=== PATIENT | male | born 1985 | race American Indian/Alaskan Native ===

== ENCOUNTER 2018-08-11 20:27 | Emergency (ER) | payer OTHER ==
[2018-08-11 20:43] VITALS: BP 128/82
[2018-08-11] MEDS ORDERED: BENADRYL PO ONE (23:11)
[2018-08-11] MEDS ORDERED: IBUPROFEN PO ONE (23:12)
--- NOTE | 2018-08-11 23:37 | Emergency Department Report ---
Eye Injury/Foreign Body - HPI Duration: Today Eye Location: Left Severity: Mild Tetanus Status: Up to Date Eye Symptoms: Eye Pain: Yes, Blurred Vision: No, Eye Redness: Yes, Grinding/Hammering Metal: No, Used Eye Protection: No, Contact Lens Use: Yes, Recalls Injury: Yes, Photophobia: No Other History: retained contact lense piece in left eye states my contact split this morning when I was trying to put it in ED Review of Systems ROS: Stated complaint: TORN CONTACT IN LEFT EYE Other details as noted in HPI Constitutional: denies: chills, fever Eyes: eye pain, eye discharge, other (foreign body left eye ). denies: vision change ENT: denies: ear pain, throat pain Respiratory: denies: cough, shortness of breath, wheezing Cardiovascular: denies: chest pain, palpitations Endocrine: no symptoms reported Gastrointestinal: denies: abdominal pain, nausea, diarrhea Genitourinary: denies: urgency, dysuria Musculoskeletal: denies: back pain, joint swelling, arthralgia Skin: denies: rash, lesions Neurological: denies: headache, weakness, paresthesias Psychiatric: denies: anxiety, depression Hematological/Lymphatic: denies: easy bleeding, easy bruising ED Past Medical Hx - Past Medical History Previous Medical History?: No - Surgical History Past Surgical History?: No - Social History Smoking Status: Never Smoker Substance Use Type: None - Medications Home Medications: Home Medications Medication Instructions Recorded Confirmed Last Taken Type Cetirizine HCl [ZyrTEC] 10 mg PO DAILY #30 tab.rapdis 08/11/18 Unknown Rx Polymyxin B Sulf/Trimethoprim 2 drop OP Q4H 10 Days #10 ml 08/11/18 Unknown Rx [Polytrim Eye Drops] Eye Injury Exam - Exam General: left eye erythema , clear drainage visual acquity 20/3- left 20/20 right, Vital signs noted. No distress. Alert and acting appropriately. ED Course Vital Signs 08/11/18 08/11/18 20:38 21:44 Temperature 98.7 F 98 F Pulse Rate 70 68 Respiratory 18 16 Rate Blood Pressure 128/82 128/82 O2 Sat by Pulse 100 Oximetry - Eye Procedure Eye FB Removal: removal w/ cotton swab Eye Irrigated w/ Saline (ccs): 20 Progress: retained contact lense fragment removed with cotton tip , pt tolerated procedure with minimal distress states immediate relived eye lid inverted and irrigated vision improved plan abx anthistamine follow up with ophthalmology in 2 days return to ed if symptoms worsen. pt verbalized agreement and understanding of same. ED Medical Decision Making - Medical Decision Making foreign body removal left eye see procedure noted pt tolerated procedure with minimal distress pt given post care instructions will follow up with ophthalmology in 2 days , return to ed if symptoms worsen. pt condition is improved at this time. Critical care attestation.: If time is entered above; I have spent that time in minutes in the direct care of this critically ill patient, excluding procedure time. ED Disposition Clinical Impression: Foreign body, eye Qualifiers: Encounter type: initial encounter Laterality: left Qualified Code(s): T15.92XA - Foreign body on external eye, part unspecified, left eye, initial encounter Conjunctivitis Qualifiers: Conjunctivitis type: acute Acute conjunctivitis type: unspecified Laterality: left Qualified Code(s): H10.32 - Unspecified acute conjunctivitis, left eye Disposition: TO HOME OR SELFCARE Is pt being admited?: No Does the pt Need Aspirin: No Condition: Stable Instructions: Conjunctivitis (ED) Prescriptions: Polymyxin B Sulf/Trimethoprim [Polytrim Eye Drops] 2 drop OP Q4H 10 Days #10 ml Cetirizine HCl [ZyrTEC] 10 mg PO DAILY #30 tab.rapdis Referrals: THERESA HARDWICK MD [Primary Care Provider] - 3-5 Days GEORGE MEMBRENO MD [Staff Physician] - 3-5 Days Forms: Work/School Release Form(ED) Time of Disposition: 23:45
== END 2018-08-11 23:53 | disposition home or self-care (01) ==
LOC: ED 20:27
DX: T15.12XA Foreign body in conjunctival sac, left eye, initial encounter (principal); H10.9 Unspecified conjunctivitis; X58.XXXA Exposure to other specified factors, initial encounter; Y93.89 Activity, other specified; Y92.89 Other specified places as the place of occurrence of the external cause; Y99.8 Other external cause status